=== PATIENT | female | born 1985 ===

== ENCOUNTER 2017-03-03 21:05 | Emergency (ER) | payer SELFPAY ==
[2017-03-03 21:05] VITALS: BMI 24.5
[2017-03-03 21:38] VITALS: BP 107/73; PULSE 82; TEMP 97.6; O2SAT 97
--- NOTE | 2017-03-03 22:33 | C.PDOC ---
History Of Present Illness 31 year old female presents to the ER with a complaint of a sore to the left side of the vagina for the past 3 days that has began burning and itching today. Patient is unsure if she cut herself while shaving. Denies fever, vaginal discharge, vaginal bleeding, dysuria, or hematuria. Time Seen by Provider: 03/03/17 21:57 Chief Complaint (Nursing): Female Genitourinary History Per: Patient History/Exam Limitations: no limitations Onset/Duration Of Symptoms: Days Current Symptoms Are (Timing): Still Present Quality Of Discomfort: Burning, Other (Itching) Associated Symptoms: denies: Fever, Urinary Symptoms, Other (Vaginal discharge) Recent travel outside of the [place]: No Abnormal Vaginal Bleeding: No Past Medical History Reviewed: Historical Data, Nursing Documentation, Vital Signs Vital Signs: Last Vital Signs Temp 97.6 F 03/03/17 21:35 Pulse 82 03/03/17 21:35 Resp 20 03/03/17 22:38 BP 107/73 03/03/17 21:35 Pulse Ox 97 03/04/17 01:45 - Medical History PMH: Fractures (fib fx) Surgical History: (x 3) - [facility] Procedures ANESTH INJECT-SPIN CANAL (01/11/13) ANKLE FUSION (08/15/14) APPLICATION OF SPLINT (08/03/14) MONITORING NOS (12/01/12) LOW CERVICAL (01/11/13) OTH ARTHROTOMY-ANKLE (08/15/14) Family History: States: Unknown Family Hx - Social History Hx Alcohol Use: No Hx Substance Use: No - Immunization History Hx Tetanus Toxoid Vaccination: No Hx Influenza Vaccination: No Hx Pneumococcal Vaccination: No Review Of Systems Constitutional: Negative for: Fever Genitourinary: Negative for: Dysuria, Hematuria, Vaginal Discharge, Vaginal Bleeding Skin: Positive for: Other (Sore) Physical Exam - Physical Exam Appears: Non-toxic, No Acute Distress Skin: Warm, Dry Head: Atraumatic, Normacephalic Eye(s): bilateral: Normal Inspection Pelvic: No Vaginal Bleeding, No Vaginal Discharge, No Cervical Motion Tenderness , Other (Vesicular herpetic lesion to left side of mons pubis. No erythema or drainage.) Neurological/Psych: Oriented x3, Normal Speech ED Course And Treatment O2 Sat by Pulse Oximetry: 97 (Room air) Pulse Ox Interpretation: Normal Progress Note: Bacitracin appied, patient instructed on proper wound care and to follow up with PMD for further evaluation or return if any signs of infection arise. Disposition Counseled Patient/Family Regarding: Diagnosis, Need For Followup, Rx Given - Disposition Referrals: Zach Patel MD [Medical Doctor] - Disposition: HOME/ ROUTINE Disposition Time: 22:23 Condition: STABLE Additional Instructions: Please follow up with [facility] Take meds as directed Return to ER if worse Prescriptions: Bacitracin Ointment [Bacitracin] 30 gm TOP BID #1 tube Valacyclovir HCl [Valtrex] 1 gm PO BID #20 tablet Instructions: Genital Herpes Simplex (ED) Forms: [employer] (Polish) - Clinical Impression Clinical Impression: Genital herpes - PA / CALL CENTER AGENT / Resident Statement MD/DO has reviewed & agrees with the documentation as recorded. - Scribe Statement The provider has reviewed the documentation as recorded by the Scribe Real Amin All medical record entries made by the Scribe were at my direction and personally dictated by me. I have reviewed the chart and agree that the record accurately reflects my personal performance of the history, physical exam, medical decision making, and the department course for this patient. I have also personally directed, reviewed, and agree with the discharge instructions and disposition.
[2017-03-03 22:39] VITALS: RESP 20
== END 2017-03-03 22:38 | disposition home or self-care (01) ==
LOC: C.ER 21:05
DX: A60.00 Herpesviral infection of urogenital system, unspecified (principal)